=== PATIENT | female | born 1960 | race Caucasian/White ===

== ENCOUNTER → 2016-07-04 | Outpatient (REF) ==
[~2016-07-04] MED LIST: ALEVE 220MG220 MG PO; CALCIUM 600/VIT1 CAP PO; FLEXERIL 1010 MG/TAB PO; IRON325 MG PO; MASON NATURAL1200 MG PO; MIRTAZAPINE7.5 MG PO; MOTRIN 800800 MG/TAB PO; MULTI VITAMINS1 TAB PO; NO HOME MEDICATIONS; NORCO 325 MG-51 TAB PO; VALTREX1 GM PO
[2016-07-04 15:55] LABS: TOTAL IRON BINDING CAPACITY 311 ug/dL (265-497)
[2016-07-04 16:22] LABS: FERRITIN 198 ng/mL (11-264)
== END ==
LOC: ZLAB.WCH 14:48
PROVIDERS: Internal Medicine
DX: Z01.89 Encounter for other specified special examinations (principal)

== ENCOUNTER 2016-07-21 10:30 | Day surgery (SDC) | payer BC ==
[~2016-07-21] VITALS: Ht 170.2 cm; Wt 99.6 kg
[~2016-07-21 10:30] MED LIST changes: -ALEVE 220MG220 MG PO; -CALCIUM 600/VIT1 CAP PO; -IRON325 MG PO; -MASON NATURAL1200 MG PO; -MIRTAZAPINE7.5 MG PO; -MULTI VITAMINS1 TAB PO
[2016-07-21 10:59] VITALS: BP 105/72; PULSE 92; TEMP 98.4
[2016-07-21] MEDS ORDERED: MIRTAZAPINE7.5 MG PO (11:08)
[2016-07-21] MEDS ORDERED: ALEVE 220MG220 MG PO (11:09)
[2016-07-21] MEDS ORDERED: MULTI VITAMINS1 TAB PO (11:10)
[2016-07-21] MEDS ORDERED: MASON NATURAL1200 MG PO (11:11)
[2016-07-21] MEDS ORDERED: CALCIUM 600/VIT1 CAP PO (11:11)
[2016-07-21] MEDS ORDERED: IRON325 MG PO (11:12)
[2016-07-21 12:17] VITALS: BP 125/74; PULSE 88
[2016-07-21 12:30] VITALS: BP 125/71; PULSE 81
[2016-07-21 14:03] VITALS: BP 117/74; PULSE 82
== END 2016-07-21 12:48 | disposition home or self-care (01) ==
LOC: SDCO 10:30
DX: Z12.11 Encounter for screening for malignant neoplasm of colon (principal); K57.30 Diverticulosis of large intestine without perforation or abscess without bleeding
CPT/HCPCS: OP; J2250; J3010; J7030

== ENCOUNTER → 2018-01-24 | Outpatient (REF) ==
[~2018-01-24] MED LIST changes: +ALEVE 220MG220 MG PO; +CALCIUM 600/VIT1 CAP PO; +IRON325 MG PO; +MASON NATURAL1200 MG PO; +MIRTAZAPINE7.5 MG PO; +MULTI VITAMINS1 TAB PO
[2018-01-24 15:05] LABS: THYROID STIMULATING HORMONE 1.7 uIU/mL (0.465-4.680)
== END ==
LOC: ZLAB.WCH 14:16
PROVIDERS: Internal Medicine
DX: Z01.89 Encounter for other specified special examinations (principal)

== ENCOUNTER 2019-12-13 22:33 | Emergency (ER) | payer BC ==
[~2019-12-13] VITALS: Ht 170.2 cm; Wt 80.0 kg
[2019-12-13 22:57] VITALS: BP 105/41; TEMP 98.2
[2019-12-14 00:15] LABS: BASO % 0.1 % (0.0-2.0); EOS % 0.2 % (0-4.0); GRAN # 7.2 (1.4-6.5); GRAN % 68.7 % (42.2-75.2); HEMOGLOBIN 11.3 g/dl (12.5-16.0); LYMPH # 2.3 (1.2-3.4); LYMPH % 22.2 % (20.0-51.0); MEAN CELL VOLUME 88 fl (80.0-100.0); MEAN CORPUSCULAR HEMOGLOBIN 30 pg (27.0-31.0); MEAN CORPUSCULAR HGB CONC 34 g/dl (33.0-37.0); MEAN PLATELET VOLUME 10.4 fl (7.4-10.4); MONO # 0.9 (0.1-0.6); MONO % 8.5 % (1.7-9.3); PLATELET COUNT 268 K/mm3 (130-400); RED BLOOD COUNT 3.76 M/mm3 (4.10-5.30); REDCELL DISTRIBUTION WIDTH-CV 13.3 % (11.5-14.5)
[2019-12-14 00:17] LABS: PROTHROMBIN TIME 11.7 SECONDS (9.7-12.8)
[2019-12-14 00:20] LABS: PARTIAL THROMBOPLASTIN TIME 27.3 SECONDS (26.0-37.0)
[2019-12-14 00:22] LABS: ALBUMIN 3.7 gm/dL (3.5-5.0); BILIRUBIN,TOTAL 0.7 mg/dL (0.0-1.0); CALCIUM 9.6 mg/dL (8.4-10.2); CREATININE, serum 0.47 (0.52-1.25); POTASSIUM 3.6 mmol/L (3.4-5.0)
[2019-12-14 00:43] LABS: pH GASTRIC CONTENTS 4
[2019-12-14 00:45] LABS: GASTROCCULT POSITIVE
[2019-12-14] MEDS ORDERED: PROTONIX40 MG/Pack PEG (03:02)
[2019-12-14 03:10] VITALS: PULSE 80
== END 2019-12-14 03:10 | disposition home or self-care (01) ==
LOC: COL.ER 22:33
PROVIDERS: Emergency Medicine
DX: K94.23 Gastrostomy malfunction (principal); R06.02 Shortness of breath; Z88.6 Allergy status to analgesic agent; Z88.1 Allergy status to other antibiotic agents
CPT/HCPCS: C9113; J1790; J3010; J7030

== ENCOUNTER 2019-12-26 13:19 | Inpatient (IN) | payer BC ==
[~2019-12-26] VITALS: Ht 170.2 cm; Wt 74.6 kg
[~2019-12-26 13:19] MED LIST changes: +PROTONIX40 MG/Pack PEG
[2019-12-26 16:56] LABS: BASO % 0.1 % (0.0-2.0); GRAN # 15.8 (1.4-6.5); GRAN % 84.2 % (42.2-75.2); HEMATOCRIT 37.5 % (37.0-47.0); HEMOGLOBIN 12.6 g/dl (12.5-16.0); LYMPH # 1.8 (1.2-3.4); LYMPH % 9.3 % (20.0-51.0); MEAN CELL VOLUME 91 fl (80.0-100.0); MEAN CORPUSCULAR HEMOGLOBIN 30 pg (27.0-31.0); MEAN CORPUSCULAR HGB CONC 34 g/dl (33.0-37.0); MEAN PLATELET VOLUME 10.2 fl (7.4-10.4); MONO # 1.1 (0.1-0.6); MONO % 5.9 % (1.7-9.3); PLATELET COUNT 299 K/mm3 (130-400); RED BLOOD COUNT 4.14 M/mm3 (4.10-5.30); REDCELL DISTRIBUTION WIDTH-CV 14.2 % (11.5-14.5)
[2019-12-26] MEDS ORDERED: 00186-0370-20 IH (16:56)
[2019-12-26] MEDS ORDERED: NORCO 325 MG-51 TAB PO (16:56)
[2019-12-26] MEDS ORDERED: CENA K20 MEQ/15 PEG (16:57)
[2019-12-26] MEDS ORDERED: REMERON 15M15 MG/TA1 PEG (16:57)
[2019-12-26] MEDS ORDERED: PRELONE15 MG/5 ML PEG (16:57)
[2019-12-26 17:06] LABS: BILIRUBIN,TOTAL 0.7 mg/dL (0.0-1.0); CALCIUM 9.7 mg/dL (8.4-10.2); CREATININE, serum 0.53 (0.52-1.25); TOTAL PROTEIN 7.4 gm/dL (6.4-8.2)
[2019-12-26 17:16] LABS: C-REACTIVE PROTEIN 23.2 mg/dL (0.0-0.9)
[2019-12-26] MEDS ORDERED: RT SPIRIVA18 MCG IH (20:06)
[2019-12-26] MEDS ORDERED: CLARITIN 1010 MG/TAB PEG (20:12)
[2019-12-26] MEDS ORDERED: ANTIVERT 25MG25 MG PEG (20:14)
[2019-12-26] MEDS ORDERED: MOTRIN CHI100 MG/5 M PEG (20:16)
[2019-12-26] MEDS ORDERED: PRIL40 PEG (20:27)
[2019-12-26] MEDS ORDERED: NATURAL IRON65 MG PEG (20:33)
--- NOTE | 2019-12-26 21:41 | NUR ---
Pt arrived to the floor via wheelchair. Pt was able to ambulate to the bed from the wheelchair. Pt was able to answer all questions about he medications. Dr. Gomez has came in and talked with the pt. She currently has a complaint of a headache. Pt has been informed that I can get her something for her headache. Pt has her call light within reach and her bed is in lowest position.
[2019-12-26] MEDS ORDERED: NICODERM C14 MG/PATC TD (21:44)
[2019-12-26 23:09] VITALS: BP 136/78; PULSE 98; TEMP 98.3
[2019-12-27] VITALS (7 sets, daily range): BP systolic 99–131; BP diastolic 45–64; PULSE 60–88; TEMP 98.3–99.8
--- NOTE | 2019-12-27 07:05 | NUR ---
Pt did call out throughout the night and requested pain medication.She was given pain medication each time. She is currently resting in bed. Reported to Lionel Vences. Pt has her call light within reach.
[2019-12-27 07:39] LABS: BASO % 0.1 % (0.0-2.0); EOS % 0.4 % (0-4.0); GRAN # 8.2 (1.4-6.5); GRAN % 77.7 % (42.2-75.2); LYMPH # 1.4 (1.2-3.4); LYMPH % 13.2 % (20.0-51.0); MEAN CELL VOLUME 91 fl (80.0-100.0); MEAN CORPUSCULAR HGB CONC 33 g/dl (33.0-37.0); MEAN PLATELET VOLUME 10.7 fl (7.4-10.4); MONO # 0.9 (0.1-0.6); MONO % 8.2 % (1.7-9.3); PLATELET COUNT 230 K/mm3 (130-400); RED BLOOD COUNT 3.35 M/mm3 (4.10-5.30); REDCELL DISTRIBUTION WIDTH-CV 14.1 % (11.5-14.5)
[2019-12-27 07:45] LABS: HEMATOCRIT 30.5 % (37.0-47.0); MEAN CORPUSCULAR HEMOGLOBIN 30 pg (27.0-31.0)
[2019-12-27 07:48] LABS: HEMOGLOBIN 10.1 g/dl (12.5-16.0)
[2019-12-27 07:56] LABS: BILIRUBIN,TOTAL 0.9 mg/dL (0.0-1.0); CALCIUM 8.8 mg/dL (8.4-10.2); CREATININE, serum 0.49 (0.52-1.25); POTASSIUM 3.2 mmol/L (3.4-5.0)
[2019-12-27 08:11] LABS: C-REACTIVE PROTEIN 21.6 mg/dL (0.0-0.9)
[2019-12-27 12:55] LABS: PHOSPHOROUS 4.2 mg/dL (2.5-4.5)
--- NOTE | 2019-12-27 19:05 | NUR ---
Received report from Vangie. Seen patient awake, sitting in bed. She is laert and oriented. She has ongoing Procalamine at 83ml/hr and Lipids at 21ml/hr on her right AC. With D5NS + 20 art KCL at 75ml/hr on her right forearm. Dressing on her left abdomen is clean, dry and intact. Call light within reach.
--- NOTE | 2019-12-27 19:08 | NUR ---
Patient resting at bedside at this time. Patient is alert and oriented, answers questions appropriately. Suction at bedside for patient use to manage secretions. IV procalamine and Lipids to RAC per order, IVF and antibiotics to RFA. Dressing to PEG tube site changed after leaking. Patient denies further needs at this time, call light within reach.
--- NOTE | 2019-12-28 00:50 | NUR ---
Patient complains of pain on her shoulders, neck and mucsle spasm. She requested for Dilaudid and Diazepam.
[2019-12-28 03:31] VITALS: BP 122/63; PULSE 63; TEMP 98.3
[2019-12-28 06:45] LABS: BASO % 0.1 % (0.0-2.0); EOS % 0.4 % (0-4.0); GRAN # 7.6 (1.4-6.5); HEMOGLOBIN 10.1 g/dl (12.5-16.0); LYMPH # 1.5 (1.2-3.4); LYMPH % 14.5 % (20.0-51.0); MEAN CELL VOLUME 89 fl (80.0-100.0); MEAN CORPUSCULAR HEMOGLOBIN 30 pg (27.0-31.0); MEAN CORPUSCULAR HGB CONC 34 g/dl (33.0-37.0); MEAN PLATELET VOLUME 10.6 fl (7.4-10.4); MONO # 0.9 (0.1-0.6); MONO % 8.6 % (1.7-9.3); PLATELET COUNT 203 K/mm3 (130-400); RED BLOOD COUNT 3.35 M/mm3 (4.10-5.30); REDCELL DISTRIBUTION WIDTH-CV 13.4 % (11.5-14.5)
[2019-12-28 06:55] LABS: ALBUMIN 3.1 gm/dL (3.5-5.0); BILIRUBIN,TOTAL 0.8 mg/dL (0.0-1.0); CALCIUM 8.4 mg/dL (8.4-10.2); CREATININE, serum 0.39 (0.52-1.25); HEMATOCRIT 29.8 % (37.0-47.0); POTASSIUM 3.4 mmol/L (3.4-5.0)
[2019-12-28 07:50] VITALS: BP 113/52; PULSE 67; TEMP 98.5
--- NOTE | 2019-12-28 09:56 | NUR ---
Patient resting in bed at this time, rouses easily and is alert and oriented while awake. Patient reports that she had some trouble sleeping last night due to swelling in the back of her throat that she attributes to her tumor. Patient reports she feels relief from swelling after morning dose. IVF continue to RFA per order. Patient requested PRN pain medication, dose given per order. Denies further needs at this time, call light within reach.
[2019-12-28 12:22] VITALS: BP 112/56; PULSE 72; TEMP 98.2
[2019-12-28 16:04] VITALS: BP 118/62; PULSE 64; TEMP 98.5
--- NOTE | 2019-12-28 18:48 | NUR ---
Patient resting at bedside finishing dinner. Patient remains alert and oriented, suction at bedside for patient comfort. IV procalamine and lipids infusing per order. IVF and antibiotics infusing per order. Patient denies pain or needs at this time, call light within reach.
[2019-12-28 19:42] VITALS: BP 126/51; PULSE 66; TEMP 98.6
--- NOTE | 2019-12-28 21:00 | NUR ---
Patient awake and alert and oriented. Reports a headach. PRN dilauded administered. Will continue to monitor.
[2019-12-28 23:41] VITALS: BP 149/89; PULSE 68; TEMP 98.3
--- NOTE | 2019-12-29 03:00 | NUR ---
Patient awake and utilizing her oral suction as needed for oral secretions. Call light left within reach. Will continue to monitor.
[2019-12-29 03:40] VITALS: BP 134/64; PULSE 52; TEMP 98.6
[2019-12-29 06:57] LABS: BASO % 0.1 % (0.0-2.0); EOS % 0.2 % (0-4.0); GRAN # 7.7 (1.4-6.5); GRAN % 76.5 % (42.2-75.2); HEMATOCRIT 31.3 % (37.0-47.0); HEMOGLOBIN 10.6 g/dl (12.5-16.0); LYMPH # 1.5 (1.2-3.4); MEAN CELL VOLUME 87 fl (80.0-100.0); MEAN CORPUSCULAR HEMOGLOBIN 30 pg (27.0-31.0); MEAN CORPUSCULAR HGB CONC 34 g/dl (33.0-37.0); MEAN PLATELET VOLUME 10.3 fl (7.4-10.4); MONO # 0.8 (0.1-0.6); MONO % 7.6 % (1.7-9.3); PLATELET COUNT 232 K/mm3 (130-400); RED BLOOD COUNT 3.58 M/mm3 (4.10-5.30); REDCELL DISTRIBUTION WIDTH-CV 13.1 % (11.5-14.5)
[2019-12-29 07:12] LABS: CALCIUM 8.8 mg/dL (8.4-10.2); CREATININE, serum 0.35 (0.52-1.25); MAGNESIUM 2.2 mg/dL (1.6-2.3); POTASSIUM 3.6 mmol/L (3.4-5.0)
[2019-12-29 07:46] VITALS: BP 137/81; PULSE 85; TEMP 98.3
[2019-12-29 11:35] LABS: ALBUMIN 3.4 gm/dL (3.5-5.0); BILIRUBIN,TOTAL 0.8 mg/dL (0.0-1.0); CALCIUM 8.9 mg/dL (8.4-10.2); CREATININE, serum 0.36 (0.52-1.25); PHOSPHOROUS 2.9 mg/dL (2.5-4.5); POTASSIUM 3.5 mmol/L (3.4-5.0); TOTAL PROTEIN 6.6 gm/dL (6.4-8.2)
[2019-12-29 11:42] LABS: PRE ALBUMIN 13.6 mg/dL (17.6-36.0)
[2019-12-29 11:58] VITALS: BP 146/122; PULSE 63; TEMP 98.3
[2019-12-29 16:27] VITALS: BP 138/72; PULSE 64; TEMP 98.2
--- NOTE | 2019-12-29 16:39 | NUR ---
Radiology Supervisor met with patient to discuss discharge planning. Patient lives in [place] with her , Darrius (ph#[phone]) [address] sees Dr. Villagran for primary care. Patient obtains medications from [facility] and PEG tube supplies from [facility]. Patient has a suction machine at home as well as a walker and cane. Patient reports she is normally independent with ADLS. Patient does not have Advance Directives at this time. LISA attended clinical rounds with the team and collaborated with Matt Rapp as patient will discharge on home TPN. Patient to have PICC placed today and will start TPN. Tamela advised patient has [facility]. LISA contacted Antionette at [facility] and left a message. LISA contacted COSMO who advised TPN could be ordered from the [facility] pharmacy in [place]. LISA called patient's who advised he was on his way to the hospital now. LISA will continue to follow.
--- NOTE | 2019-12-29 18:46 | NUR ---
Patient resting at bedside eating dinner at this time. Patient remains alert and oriented. Suction at bedside for patient comfort. PICC line placed in LUE this morning, TPN initated this evening, patient currently tolerating well. Pain medication administered per patient request. Dressing to PEG site changed, moderate amount of drainage on dressing, area of induration and redness appears smaller today. Patient denies further needs at this time, call light within reach.
[2019-12-29 20:12] VITALS: BP 150/68; PULSE 65; TEMP 98.9
--- NOTE | 2019-12-29 20:30 | NUR ---
Pt. laying in bed at this time. Pt. is A&OX3, assessment complete. INT to rt. ac. PICC to Lt. upper arm patent, TPN infusing per orders. Pt. reports pain to abd. at a 6 gave pain meds per orders. Dressing to abd. cdi. Pt. denies further needs, call light within reach.
[2019-12-30 00:12] VITALS: BP 168/76; PULSE 78; TEMP 97.8
[2019-12-30 03:17] VITALS: BP 156/75; PULSE 72; TEMP 99
--- NOTE | 2019-12-30 05:58 | NUR ---
Pt. slept off and on through the night. Pt. remains A&OX3. Dressing to abd. CDI. Pt. denies needs, call light within reach.
[2019-12-30 06:44] LABS: BASO % 0.2 % (0.0-2.0); EOS % 0.1 % (0-4.0); GRAN # 8.3 (1.4-6.5); GRAN % 76.3 % (42.2-75.2); HEMOGLOBIN 11.1 g/dl (12.5-16.0); LYMPH # 1.5 (1.2-3.4); LYMPH % 13.3 % (20.0-51.0); MEAN CELL VOLUME 89 fl (80.0-100.0); MEAN CORPUSCULAR HEMOGLOBIN 30 pg (27.0-31.0); MEAN CORPUSCULAR HGB CONC 34 g/dl (33.0-37.0); MEAN PLATELET VOLUME 10.1 fl (7.4-10.4); PLATELET COUNT 261 K/mm3 (130-400); RED BLOOD COUNT 3.69 M/mm3 (4.10-5.30); REDCELL DISTRIBUTION WIDTH-CV 13.2 % (11.5-14.5)
[2019-12-30 06:45] LABS: HEMATOCRIT 32.8 % (37.0-47.0)
[2019-12-30 06:51] LABS: ALBUMIN 3.4 gm/dL (3.5-5.0); BILIRUBIN,TOTAL 0.5 mg/dL (0.0-1.0); CALCIUM 8.5 mg/dL (8.4-10.2); CREATININE, serum 0.36 (0.52-1.25); MAGNESIUM 2.4 mg/dL (1.6-2.3); PHOSPHOROUS 3.3 mg/dL (2.5-4.5); POTASSIUM 3.7 mmol/L (3.4-5.0); TOTAL PROTEIN 6.6 gm/dL (6.4-8.2)
[2019-12-30 07:34] VITALS: BP 152/70; PULSE 62; TEMP 98.2
--- NOTE | 2019-12-30 08:53 | NUR ---
Patient to MRI at 0820
[2019-12-30] MEDS ORDERED: REMERON SOLTAB15 MG PO (09:36)
[2019-12-30] MEDS ORDERED: BONINE25 MG PO (09:38)
[2019-12-30] MEDS ORDERED: FERROUS SU300 MG/5 M PO (09:42)
[2019-12-30] MEDS ORDERED: AUGMENTIN 400 M1 CTB PO (09:45)
[2019-12-30] MEDS ORDERED: NORCOELIX PO (09:46)
[2019-12-30 11:24] VITALS: BP 126/58; PULSE 65; TEMP 98.6
--- NOTE | 2019-12-30 13:25 | NUR ---
Dr Armas here to see patient.
--- NOTE | 2019-12-30 14:30 | NUR ---
Location Man faxed TPN orders, progress notes, and nutrition notes to Patricia at [facility] in [place]. Patricia advised TPN will ship out today and arrive at patient's home tomorrow at 1800. Patricia states patient has met her deductible and TPN will likely be approved. LISA provided this update to Tamela, Dietitian and Hospitalist and plan will be for discharge tomorrow. LISA faxed referral to [facility] and spoke with SHELL Adan who advised they accept referral. LISA advised that plan is for discharge tomorrow. LISA contacted Patricia to notify her that [facility] will be the agency providing home health. LISA met with patient and patient's , Darrius to review discharge plan. LISA will continue to follow.
[2019-12-30 16:07] VITALS: BP 141/67; PULSE 60; TEMP 98.2
[2019-12-30 20:06] VITALS: BP 145/64; PULSE 92; TEMP 97.4
--- NOTE | 2019-12-30 21:00 | NUR ---
Pt. sitting up in bed at this time. Pt. is A&OX3, assessment complete. PICC to lt. upper arm patent, TPN infusing per orders. Dressing to abd. CDI. Pt. reports pain at a 6 on pain scale, gave pain meds per orders. Pt. denies further needs, call light within reach.
[2019-12-31] VITALS (7 sets, daily range): BP systolic 134–148; BP diastolic 49–62; PULSE 60–70; TEMP 97.5–99.1
--- NOTE | 2019-12-31 06:53 | NUR ---
Pt.'s bed zeroed this am Weight is accurate
[2019-12-31 07:12] LABS: BASO % 0.2 % (0.0-2.0); EOS % 0.2 % (0-4.0); GRAN # 10.3 (1.4-6.5); GRAN % 77.5 % (42.2-75.2); HEMOGLOBIN 11.5 g/dl (12.5-16.0); LYMPH # 1.7 (1.2-3.4); LYMPH % 12.7 % (20.0-51.0); MEAN CELL VOLUME 88 fl (80.0-100.0); MEAN CORPUSCULAR HEMOGLOBIN 30 pg (27.0-31.0); MEAN CORPUSCULAR HGB CONC 34 g/dl (33.0-37.0); MEAN PLATELET VOLUME 9.9 fl (7.4-10.4); MONO # 1.1 (0.1-0.6); MONO % 8.5 % (1.7-9.3); PLATELET COUNT 271 K/mm3 (130-400); RED BLOOD COUNT 3.82 M/mm3 (4.10-5.30); REDCELL DISTRIBUTION WIDTH-CV 13.2 % (11.5-14.5)
[2019-12-31 07:13] LABS: HEMATOCRIT 33.7 % (37.0-47.0)
[2019-12-31 07:21] LABS: CALCIUM 8.8 mg/dL (8.4-10.2); CREATININE, serum 0.33 (0.52-1.25); MAGNESIUM 2.3 mg/dL (1.6-2.3); PHOSPHOROUS 3.1 mg/dL (2.5-4.5); POTASSIUM 3.5 mmol/L (3.4-5.0)
[2019-12-31 07:27] LABS: PRE ALBUMIN 14.3 mg/dL (17.6-36.0)
--- NOTE | 2019-12-31 07:55 | NUR ---
Shift assessment completed. Pt has left antecubital PICC line with no redness, drainage, or edema. Pt had suction at bedside to clear mouth of secretions from cough. Abdominal dressing was CDI. Pt was complaining of neck pain.
--- NOTE | 2019-12-31 10:00 | NUR ---
Patient alert and oriented, answers questions appropriately. See assessment. LUQ has increased redness and warmth. Previous PEG tube site with no drainage noted. Small open area noted to left of previous PEG tube site, draining large amounts of purulent drainage. Mechelle Gonzales and Chanda notified of drainage.
--- NOTE | 2019-12-31 10:05 | NUR ---
Dr Armas here to see patient.
--- NOTE | 2019-12-31 10:30 | NUR ---
Dr Armas at bedside to drain abscess to LUQ. [place] drain in place, covered with 4x4 and gauze.
--- NOTE | 2019-12-31 12:36 | NUR ---
Ham Trimmer attended clinical rounds with the team and patient will not discharge today. LISA contacted Patricia at [facility] to provide update. Patricia confirmed TPN should still arrive at patient's home tonight around 1800. Patricia advised that the TPN will be good for 14 days but needs to be put in the fridge upon arrival. LISA contacted patient's , Darrius who states he will be home tonight to sign for the TPN. LISA contacted Antionette at [facility] to provide update. LISA will continue to follow.
--- NOTE | 2019-12-31 20:30 | NUR ---
Pt laying in bed upon entry requesting scheduled meds and prn pain med. Dressing to abdomen changed, with purulent drainage, angelica in place. Yaunker at bedside. PRN pain meds and scheduled meds administered. TPN infusing to SARMAD PICC, intact, dressing CDI. Needs met. Call light within reach.
[2020-01-01 04:38] VITALS: BP 139/64; PULSE 63; TEMP 98.2
--- NOTE | 2020-01-01 07:07 | NUR ---
report given to SHELL Dumont.
[2020-01-01 07:31] VITALS: BP 137/57; PULSE 68; TEMP 98.5
[2020-01-01 07:38] LABS: CALCIUM 8.9 mg/dL (8.4-10.2); CREATININE, serum 0.36 (0.52-1.25); MAGNESIUM 2.2 mg/dL (1.6-2.3); PHOSPHOROUS 2.7 mg/dL (2.5-4.5); POTASSIUM 3.2 mmol/L (3.4-5.0)
--- NOTE | 2020-01-01 10:10 | NUR ---
PATIENT SHIFT ASSESSMENT COMPLETED AT THIS TIME. ABDOMINAL THOMAS DRAIN DRESSING REMOVED. SMALL AMOUNTS OF PURULENT DRAINAGE PRESENT ON GAUZE WHEN REMOVED. THOMAS DRAIN SITE RE-DRESSED WITH MANUAL ARTS THERAPY TEACHER AND COVERED WITH 4X4 GAUZE AND OCCLUSIVE TAPE. PICC LINE TO LUE. CALL LIGHT IN REACH. PATIENT DENIES ANY OTHER NEEDS AT THIS TIME.
[2020-01-01 12:00] VITALS: BP 131/61; PULSE 77; TEMP 98.1
--- NOTE | 2020-01-01 15:18 | NUR ---
Chair Mechanic attended clinical rounds with the team and patient to discharge home today with [facility] for PT/OT/Fpc and home TPN from [facility]. LISA contacted Antionette at [facility] then faxed updates and discharge orders. Antionette advised she will get in contact with patient once she is home and they will get patient's TPN started. LISA collaborated with Deena Rappitian then met with patient and her to review discharge plan. Patient's , Darrius confirmed that the TPN arrived yesterday with no issue. Patient and denied any questions or concerns at this time.
--- NOTE | 2020-01-01 17:14 | NUR ---
DISCHARGE INSTRUCTIONS REVIEWED WITH PATIENT AND . PATIENT PERSONAL BELONGINGS GATHERED. PATIENT TAKEN TO PERSONAL VEHICLE VIA WHEELCHAIR BY SURGICAL STAFF. PATIENT DISCHARGED.
== END 2020-01-01 17:14 | disposition home health service (06) | DRG 356 ==
LOC: COL.ER 13:19 → SURG 17:44 → MEDICAL 01-01 14:03 → SURG 01-01 17:14
PROVIDERS: Emergency Medicine; Hospitalist; Physician Assistant; Surgery; ADMIT Surgery
PROC: 02HV33Z Insertion of Infusion Device into Superior Vena Cava, Percutaneous Approach (ICD-10-PCS; 2019-12-29)
PROC: 0W9F00Z Drainage of Abdominal Wall with Drainage Device, Open Approach (ICD-10-PCS; principal; 2019-12-31)
DX: K94.22 Gastrostomy infection (principal); A41.9 Sepsis, unspecified organism; L03.311 Cellulitis of abdominal wall; E87.3 Alkalosis; L02.211 Cutaneous abscess of abdominal wall; K94.23 Gastrostomy malfunction; J44.9 Chronic obstructive pulmonary disease, unspecified; D49.6 Neoplasm of unspecified behavior of brain; E87.6 Hypokalemia; D64.9 Anemia, unspecified; E27.9 Disorder of adrenal gland, unspecified; Z87.891 Personal history of nicotine dependence; Z88.1 Allergy status to other antibiotic agents; Z88.6 Allergy status to analgesic agent; Y83.8 Other surgical procedures as the cause of abnormal reaction of the patient, or of later complication, without mention of misadventure at the time of the procedure
CPT/HCPCS: 99222; 99231-AI; 99232-AI; A9585; C1751; J0610; J1100; J1170; J1650; J2405; J2543; J3010; J3360; J3475; J3480; J7030; J7120; J7131; J7510; Q9967

== ENCOUNTER 2020-01-03 11:14 | Emergency (ER) | payer BC ==
[~2020-01-03] VITALS: Ht 170.2 cm; Wt 78.6 kg
[~2020-01-03 11:14] MED LIST changes: +00186-0370-20 IH; +ANTIVERT 25MG25 MG PEG; +AUGMENTIN 400 M1 CTB PO; +BONINE25 MG PO; +CENA K20 MEQ/15 PEG; +CLARITIN 1010 MG/TAB PEG; +FERROUS SU300 MG/5 M PO; +MOTRIN CHI100 MG/5 M PEG; +NATURAL IRON65 MG PEG; +NICODERM C14 MG/PATC TD; +NORCOELIX PO; +PRELONE15 MG/5 ML PEG; +PRIL40 PEG; +REMERON 15M15 MG/TA1 PEG; +REMERON SOLTAB15 MG PO; +RT SPIRIVA18 MCG IH
[2020-01-03 11:27] VITALS: TEMP 97.4
[2020-01-03 13:50] VITALS: BP 128/72; PULSE 88
== END 2020-01-03 13:50 | disposition home or self-care (01) ==
LOC: COL.ER 11:14
DX: L02.211 Cutaneous abscess of abdominal wall (principal); J44.9 Chronic obstructive pulmonary disease, unspecified; Z88.6 Allergy status to analgesic agent; Z88.1 Allergy status to other antibiotic agents; Z79.51 Long term (current) use of inhaled steroids; Z79.52 Long term (current) use of systemic steroids

== ENCOUNTER 2020-01-10 20:47 | Emergency (ER) | payer BC ==
[2020-01-10 20:48] VITALS: TEMP 98.4
[2020-01-10 21:13] LABS: BASO % 0.1 % (0.0-2.0); GRAN # 13.8 (1.4-6.5); GRAN % 88.6 % (42.2-75.2); HEMOGLOBIN 11.6 g/dl (12.5-16.0); LYMPH # 0.8 (1.2-3.4); LYMPH % 4.8 % (20.0-51.0); MEAN CELL VOLUME 88 fl (80.0-100.0); MEAN CORPUSCULAR HEMOGLOBIN 30 pg (27.0-31.0); MEAN CORPUSCULAR HGB CONC 34 g/dl (33.0-37.0); MEAN PLATELET VOLUME 10.2 fl (7.4-10.4); MONO # 0.9 (0.1-0.6); MONO % 5.9 % (1.7-9.3); PLATELET COUNT 241 K/mm3 (130-400); RED BLOOD COUNT 3.88 M/mm3 (4.10-5.30); REDCELL DISTRIBUTION WIDTH-CV 13.7 % (11.5-14.5)
[2020-01-10 21:26] LABS: HEMATOCRIT 34.3 % (37.0-47.0)
[2020-01-10 21:29] LABS: INR 1.2 (0.8-3.0); PROTHROMBIN TIME 12.9 SECONDS (9.7-12.8)
[2020-01-10 21:41] LABS: ALBUMIN 3.4 gm/dL (3.5-5.0); BILIRUBIN,TOTAL 0.8 mg/dL (0.0-1.0); CALCIUM 8.8 mg/dL (8.4-10.2); CREATININE, serum 0.38 (0.52-1.25); TOTAL PROTEIN 6.3 gm/dL (6.4-8.2)
[2020-01-10 21:54] LABS: POTASSIUM 2.4 mmol/L (3.4-5.0)
[2020-01-11] VITALS: BP 133/79; PULSE 97
== END 2020-01-11 | disposition short-term general hospital (02) ==
LOC: COL.ER 20:47
PROVIDERS: Emergency Medicine
DX: S02.113A Unspecified occipital condyle fracture, initial encounter for closed fracture (principal); S12.040A Displaced lateral mass fracture of first cervical vertebra, initial encounter for closed fracture; S09.92XA Unspecified injury of nose, initial encounter; S12.9XXA Fracture of neck, unspecified, initial encounter; H74.8X3 Other specified disorders of middle ear and mastoid, bilateral; J44.9 Chronic obstructive pulmonary disease, unspecified; Z88.1 Allergy status to other antibiotic agents; Z88.6 Allergy status to analgesic agent; Z91.040 Latex allergy status; W22.03XA Walked into furniture, initial encounter; Y92.009 Unspecified place in unspecified non-institutional (private) residence as the place of occurrence of the external cause
CPT/HCPCS: J3480; J7030; L0174

== ENCOUNTER 2020-01-23 14:09 | Inpatient (IN) | payer BC, OTHER ==
[~2020-01-23] VITALS: Ht 170.2 cm; Wt 75.9 kg
[2020-01-23] VITALS (130 sets, daily range): BP systolic 139; BP diastolic 80; PULSE 98; TEMP 98.2–98.5; O2SAT 87–98
[2020-01-23 14:42] LABS: HEMOGLOBIN 10.4 g/dl (12.5-16.0); MEAN CELL VOLUME 91 fl (80.0-100.0); MEAN CORPUSCULAR HEMOGLOBIN 30 pg (27.0-31.0); MEAN CORPUSCULAR HGB CONC 33 g/dl (33.0-37.0); MEAN PLATELET VOLUME 10.3 fl (7.4-10.4); PLATELET COUNT 294 K/mm3 (130-400); RED BLOOD COUNT 3.47 M/mm3 (4.10-5.30); REDCELL DISTRIBUTION WIDTH-CV 14.6 % (11.5-14.5)
[2020-01-23 14:44] LABS: HEMATOCRIT 31.6 % (37.0-47.0)
[2020-01-23 14:51] LABS: ALBUMIN 3.3 gm/dL (3.5-5.0); BILIRUBIN,TOTAL 0.8 mg/dL (0.0-1.0); CALCIUM 8.6 mg/dL (8.4-10.2); CREATININE, serum 0.58 (0.52-1.25); POTASSIUM 3.7 mmol/L (3.4-5.0); TOTAL PROTEIN 6.5 gm/dL (6.4-8.2)
[2020-01-23 14:59] LABS: ANISOCYTOSIS 1+; BAND 3 % (0-10); LYMPHOCYTE 2 % (20.0-51.0); NEUTROPHILS 94 % (42.0-75.2); PLATELET ESTIMATE NORMAL (NORMAL)
[2020-01-23 15:34] LABS: COLLECTION METHOD CATHETER
[2020-01-23 15:47] LABS: MUCOUS Present /lpf; PH 7 (5-8); SQUAMOUS EPITHELIAL 0-2 /hpf; URINE APPEARANCE Clear; URINE BACTERIA None Seen /hpf; URINE BILIRUBIN Negative (NEGATIVE); URINE BLOOD Negative (NEGATIVE); URINE COLOR Yellow; URINE GLUCOSE Negative (NEGATIVE); URINE KETONE Negative (NEGATIVE); URINE LEUKOCYTE ESTERASE Negative (NEGATIVE); URINE NITRATE Negative (NEGATIVE); URINE PROTEIN(semi-quant) Negative (NEGATIVE); URINE RBC 0-2 /hpf; URINE UROBILINOGEN >=4.0 mg/dL (NEGATIVE)
[2020-01-23] MEDS ORDERED: SALONPAS1 EACH TP (16:12)
[2020-01-23] MEDS ORDERED: CENA K20 MEQ/15 PO (16:13)
[2020-01-23] MEDS ORDERED: PRELONE15 MG/5 ML PO (16:13)
[2020-01-23 16:59] LABS: TROPONIN-I < 0.012 ng/mL (0.000-0.035)
--- NOTE | 2020-01-23 17:02 | NUR ---
Finishing Range Supervisor was consulted to the ED as patient arrived via EMS covered in feces and has not been doing well at home. LISA contacted Antionette at [facility] as patient was recently admitted to this hospital and was discharged home on TPN and was set up with [facility]. Antionette advised that patient has not been doing well at home and has been unable to ambulate without falling. Antionette reports patient was recently at [facility] and they tried to place patient at [facility]. Unfortunately, patient's [employer] [facility] coverage does not have SNF benefits. [facility] offered patient a discounted rate to private pay at [facility] since she used to work for [facility] but patient could not afford even discounted rate. LISA contacted Tsering at [facility] who confirmed this and advised the rate they offered was $160 per day. Tsering advised that they would be willing to consider taking patient if she could private pay. Tsering advised that the SW at [facility] talked with patient and her about Medicaid, but they did not want to do a division of assets. LISA met with patient's in the parking lot and Darrius reports he cannot care for patient at home. Darrius states patient has not been able to walk and has been incontinent. Darrius did not recall anyone talking to him about Medicaid but was willing to discuss applying with Financial Counseling. Darrius reports he is open to placement for patient, but they cannot afford private pay. LISA consulted Dacia, Financial Counseling but due to the time of day, an application for Medicaid cannot be submitted. LISA contacted Michelle, IPR Director who advised she recently screened patient when patient was at [facility] but at that time, patient was deemed too functional for admission to IPR. Michelle reports she is willing to rescreen patient, but with patient having BCBS, she could not admit over the weekend as BCBS cannot be contacted over the weekend. LISA also faxed a referral to [facility] in [place] and left a message for Princess, Smoking Tobacco Cutter Operator. LISA provided update to RNKatharina who advised patient will be admitted. Katharina also advised that patient's is aware that patient will be admitted. LISA made report to APS (intake #[id number])
[2020-01-23] MEDS ORDERED: BACTRIM DS 8001 TAB PO (21:17)
[2020-01-24] VITALS (550 sets, daily range): BP systolic 114–147; BP diastolic 74–95; PULSE 80–103; TEMP 96.7–98.5; O2SAT 87–100
[2020-01-24 04:39] LABS: EOS % 0.1 % (0-4.0); GRAN # 4.8 (1.4-6.5); GRAN % 70.5 % (42.2-75.2); LYMPH # 1.4 (1.2-3.4); LYMPH % 20.5 % (20.0-51.0); MEAN CELL VOLUME 93 fl (80.0-100.0); MEAN CORPUSCULAR HGB CONC 32 g/dl (33.0-37.0); MEAN PLATELET VOLUME 10.2 fl (7.4-10.4); MONO # 0.6 (0.1-0.6); MONO % 8.6 % (1.7-9.3); PLATELET COUNT 236 K/mm3 (130-400); REDCELL DISTRIBUTION WIDTH-CV 14.5 % (11.5-14.5)
[2020-01-24 04:40] LABS: HEMATOCRIT 27.1 % (37.0-47.0); HEMOGLOBIN 8.7 g/dl (12.5-16.0); MEAN CORPUSCULAR HEMOGLOBIN 30 pg (27.0-31.0)
[2020-01-24 04:43] LABS: INR 1.2 (0.8-3.0); PROTHROMBIN TIME 13.9 SECONDS (9.7-12.8)
[2020-01-24 04:50] LABS: CALCIUM 7.2 mg/dL (8.4-10.2); CREATININE, serum 0.46 (0.52-1.25); MAGNESIUM 1.7 mg/dL (1.6-2.3); PHOSPHOROUS 3.3 mg/dL (2.5-4.5)
[2020-01-24 04:55] LABS: POTASSIUM 2.7 mmol/L (3.4-5.0)
--- NOTE | 2020-01-24 05:17 | NUR ---
Pt with K 2.7, Mg 1.7. Jacy called, new orders to replace per potassium prtocol and give MG 2G. Spoke with Dr. Verdin.
--- NOTE | 2020-01-24 07:30 | NUR ---
Pt resting on right side in bed with NC in mouth. Suction at bedside for pt to use at will. Dressing intact around PEG tube site. SCD's not on at this time. Pt able to answer questions appropriately although is difficult to understand at times.
--- NOTE | 2020-01-24 07:35 | NUR ---
Bedside report received from Anne GOFF. IV pumps assessed as well as skin abnormality.
--- NOTE | 2020-01-24 15:00 | NUR ---
Per dietitians verbal orders, once tube feeds are started the NS rate needs to be decreased from 75ml to 50ml/hr.
--- NOTE | 2020-01-24 16:30 | NUR ---
First feeding completed. Decreased NS from 75ml to 50ml/hr.
--- NOTE | 2020-01-24 17:54 | NUR ---
New bed assignment received (353). Report provided to Lucero GOFF on medical floor. Will get pt situated and will call prior to bringing pt up.
--- NOTE | 2020-01-24 20:00 | NUR ---
Pt assisted via ICU bed to room 353. Spouse notified via semiconductor lab technician in ICU. Charge nurse on medical Barb notified of pt arrival and IV fluids running.
--- NOTE | 2020-01-24 21:00 | NUR ---
Pt came from ICU, settled in bed 353. Transfer procedure completed, meds provided as per MAR, tolerated well. Pt has diminished heart and lung sound. Pt denies any N/V/D/ tingling, numbness. Pt complained of pain 8/10 over her neck area, PRN pain meds provided. Peg tube, IV, and folley catheter is CD&I. No further needs at this time, will keep monitoring.
[2020-01-25 00:03] VITALS: BP 140/70; PULSE 83; TEMP 97.6
[2020-01-25 04:54] VITALS: BP 121/83; PULSE 118; TEMP 98.3
--- NOTE | 2020-01-25 06:25 | NUR ---
Pt slept on and off through out the night. PRN pain meds provided on pt request. Morning meds provided as per MAY. No further needs at this time.
--- NOTE | 2020-01-25 06:45 | NUR ---
Report received from SHELL Wynn. PT in bed resting, requesting feeding, found purple syringes in middle storage room outside of hospitalist office. Resting in bed, PRN pain meds will be given and feeding.
[2020-01-25 07:17] LABS: BASO % 0.1 % (0.0-2.0); EOS % 0.1 % (0-4.0); GRAN # 5.9 (1.4-6.5); GRAN % 75.6 % (42.2-75.2); HEMOGLOBIN 10.1 g/dl (12.5-16.0); LYMPH # 1.3 (1.2-3.4); MEAN CELL VOLUME 91 fl (80.0-100.0); MEAN CORPUSCULAR HEMOGLOBIN 30 pg (27.0-31.0); MEAN CORPUSCULAR HGB CONC 33 g/dl (33.0-37.0); MEAN PLATELET VOLUME 10.1 fl (7.4-10.4); MONO # 0.5 (0.1-0.6); MONO % 6.8 % (1.7-9.3); PLATELET COUNT 284 K/mm3 (130-400); RED BLOOD COUNT 3.37 M/mm3 (4.10-5.30)
[2020-01-25 07:23] LABS: HEMATOCRIT 30.8 % (37.0-47.0)
[2020-01-25 07:31] LABS: ALBUMIN 3.2 gm/dL (3.5-5.0); CALCIUM 8.6 mg/dL (8.4-10.2); CREATININE, serum 0.46 (0.52-1.25); MAGNESIUM 1.9 mg/dL (1.6-2.3); TOTAL PROTEIN 6.3 gm/dL (6.4-8.2)
[2020-01-25 07:38] LABS: PRE ALBUMIN 19.3 mg/dL (17.6-36.0)
[2020-01-25 07:39] LABS: POTASSIUM 2.9 mmol/L (3.4-5.0)
[2020-01-25 08:19] VITALS: BP 121/63; PULSE 99; TEMP 98.6
--- NOTE | 2020-01-25 09:00 | NUR ---
Assessment charted. Pt in bed resting, tube feeding given and will start continuous feeding shortly. Pt has pain at 8/10 to abd, prn pain meds given. REsting in side, refusing O2, suction per request at bedside, new canister given. NO residual on PEG tube. Denies needs, will continue to monitor.
[2020-01-25 11:38] VITALS: BP 143/85; PULSE 97; TEMP 97
--- NOTE | 2020-01-25 13:18 | NUR ---
PT tolerating tube feeding well at continuous rate, increased to 60 ml/hr per orders and instructed onkeeping HOB at 30 degrees. at bedside.
[2020-01-25] MEDS ORDERED: FENTANYL 12MCG TD (13:34)
[2020-01-25 15:41] VITALS: BP 117/59; PULSE 100; TEMP 98.1
--- NOTE | 2020-01-25 18:19 | NUR ---
Pt up to commode off and on today, resting in bed with HOB elelvated at 30 degrees. Tube feedings continuing at 60ml/hr, pt tolerating well, denies nausea. PRN pain meds given per request, will give bedside shift report to nightshift nurse who will resume care.
--- NOTE | 2020-01-25 18:27 | NUR ---
LISA spoke to Darrius [phone]. stated that he is unsure of where patient will go after her DC. Spouse stated that she will have to make that decision. He provides he will be unable to assist with her care, due to the extent of her health. Spouse states that their daughter assist with some care and [facility] home health assists with home health that is needed. He states that patients PCP is Dr. Villagran. Spouse requested again for LISA to assist in finding out what patient would like to do upon DC. LISA will continue to follow.
[2020-01-25 20:11] VITALS: BP 135/73; PULSE 97; TEMP 97.7
--- NOTE | 2020-01-25 20:45 | NUR ---
Pt assessment completed and documented. Pt resting in bed at this time attempting to sleep. Pt reporting 9/10 pain to her neck that radiates to her head. PRN norco given per pt request per orders. PICC to RUE CDI without complications. Frias to dependent drainage with clear, yellow urine. Tube feeding infusing per orders to PEG tube. Pt denies any other needs/concerns at this time. Call light within reach. Bed alarm on. Will continue to monitor.
[2020-01-26] VITALS: BP 129/79; PULSE 110; TEMP 98.2
[2020-01-26 04:00] VITALS: BP 130/75; PULSE 105; TEMP 98.2
--- NOTE | 2020-01-26 05:41 | NUR ---
PRN norco given overnight per orders per pt request for neck/head pain. PRN valium given x1 for dizziness. Pt states she has rested well overnight. Currently resting in bed. PICC to LUE CDI. Frias to dependent drainage with clear, yellow urine. Tube feeding infusing per orders. Call light within reach. Bed alarm on
[2020-01-26 06:48] LABS: BASO % 0.1 % (0.0-2.0); EOS % 0.4 % (0-4.0); GRAN # 5.5 (1.4-6.5); GRAN % 70.8 % (42.2-75.2); HEMOGLOBIN 10.3 g/dl (12.5-16.0); LYMPH # 1.6 (1.2-3.4); MEAN CELL VOLUME 92 fl (80.0-100.0); MEAN CORPUSCULAR HEMOGLOBIN 31 pg (27.0-31.0); MEAN CORPUSCULAR HGB CONC 33 g/dl (33.0-37.0); MEAN PLATELET VOLUME 9.8 fl (7.4-10.4); MONO # 0.6 (0.1-0.6); MONO % 7.3 % (1.7-9.3); PLATELET COUNT 298 K/mm3 (130-400); RED BLOOD COUNT 3.37 M/mm3 (4.10-5.30)
[2020-01-26 06:56] LABS: CALCIUM 8.7 mg/dL (8.4-10.2); CREATININE, serum 0.4 (0.52-1.25); POTASSIUM 3.1 mmol/L (3.4-5.0)
[2020-01-26 07:04] LABS: PRE ALBUMIN 17.3 mg/dL (17.6-36.0)
--- NOTE | 2020-01-26 07:04 | NUR ---
Report given to SHELL Siddiqui
[2020-01-26 07:18] VITALS: BP 113/61; PULSE 114; TEMP 98.5
--- NOTE | 2020-01-26 10:38 | NUR ---
Assessment complete. Patient laying in bed, easily awoke to voice. Spoke with me minimally. Pain medication was requested, this was provided. Tube feeding was pauswed during medication administration, total of 100 ml used to flush between, before and after medications. Patient states she is comfotable at this time as far as her position. Tube feeding continues at 60 ml/hr as ordered. Potassium will be replaced per protocol. Will continue to monitor. Call light is in reach.
[2020-01-26 11:21] VITALS: BP 122/71; PULSE 110; TEMP 98
--- NOTE | 2020-01-26 13:30 | NUR ---
I spoke with pt several times today and also with her , Darrius. Kelly feels like she needs more meclizine and she will be less dizzy and can move on. She is tolerating her tube feeding well at this point but gets dizzy whenever she sits up or even moves. Kelly has managed her family finances and is still currently doing that. Her has known her the last 8 years and reports he knows very little about all the finances but she does it all. She is currently on short term diability which will run out in April. Patient assisance staff has met with her and talked with Darrius by phone to start the application for medicaid and will talk with her about social security diasability. Pt lives with her and daughter but the daughter provides very little care to her mother and basically lives in the basement. Daughter's name is Sylvie. She also has a son named Emir who lives in [place] but "has his hands full dealing with his own issues". She is also responsible for "Emir Field" who Darrius reports will go to [facility] if Kelly cannot help with his care. Pt does not have any durable power of state's attorney paperwork completed for herself. She told me she was going to fight this. I strongly encouraged her to think about who she would want to make decisions for her, if she was unable to make her own decisions. She shrugged her shoulder and said she didn't know who that would be. I encouraged her to think about that "just in case she would find herself in that position" and she did agree it would be important. She is struggling with the idea that she is not a caregiver now as much as someone who needs care. I did ask if there was anyone we would need to contact about Sylvie and Emir Field and she said no. She is very clear she is going to fight this cancer everway that she can and wants everything done.
--- NOTE | 2020-01-26 15:28 | NUR ---
A palliative care consult was ordered. LISA staffed with Palliative Care Nurse, Kasey. The patient would still like to continue treatment and is not ready for hospice. LISA followed up with Michelle, IPR Director, on referral. Michelle has submitted the patient's information to insurance and is waiting to hear back from them. LISA met with the patient to follow up. The patient confirms that she is wanting to continue treatment and fight. She states she is not ready to stop fighting. LISA inquired about a DPOA-HC. The patient states that she does not have one. She is not interested in completing one at this time, but states she will think about it. LISA provided her with a DPOA-HC form. LISA contacted and updated the patient's , Darrius. Darrius is agreeable to the patient going to [facility], if insurance approves. Financial Counselor, Dacia, completed a Medicaid application with the patient. Awaiting insurance.
[2020-01-26] MEDS ORDERED: LOVENOX 4040 MG/0.4 SQ (15:52)
[2020-01-26] MEDS ORDERED: KLOR-CON20 MEQ PO (15:54)
--- NOTE | 2020-01-26 16:27 | NUR ---
Michelle, IPR Director, reports that she received approval from the patient's insurance and that she would be able to accept the patient. LISA followed up with the patient and updated her on acceptance to [facility]. The patient is agreeable to going to [facility]. LISA contacted and updated the patient's , Darrius. LISA contacted and updated Antionette at [facility]. The patient is to discharge today, 01/25, to [facility]. No additional needs at this time.
[2020-01-26 16:31] VITALS: BP 122/71; PULSE 110; TEMP 98
--- NOTE | 2020-01-26 17:40 | NUR ---
PATIENT LEFT THE FLOOR AT THIS TIME. SHE WAS AWARE OF HER POC. ALL BELONGINGS WERE TRANSFERRED WITH HER. REPORT WAS CALL TO [facility]. NO OTHER QUESTIONS OR CONCRENS. TUBE FEEDING CONTINUED THROUGH TRANSFER.
== END 2020-01-26 18:02 | DRG 91 ==
LOC: COL.ER 14:09 → ICU 18:42 → MEDICAL 18:42
PROVIDERS: Emergency Medicine; Internal Medicine; Physician Assistant; ADMIT Student in an Organized Health Care Education/Training Program
DX: G72.81 Critical illness myopathy (principal); E43 Unspecified severe protein-calorie malnutrition; R65.10 Systemic inflammatory response syndrome (SIRS) of non-infectious origin without acute organ dysfunction; E87.2 Acidosis; C71.9 Malignant neoplasm of brain, unspecified; E87.3 Alkalosis; R62.7 Adult failure to thrive; D50.9 Iron deficiency anemia, unspecified; R13.10 Dysphagia, unspecified; E87.6 Hypokalemia; G47.00 Insomnia, unspecified; J44.9 Chronic obstructive pulmonary disease, unspecified; E27.8 Other specified disorders of adrenal gland; Z20.828 Contact with and (suspected) exposure to other viral communicable diseases; Z90.89 Acquired absence of other organs; Z90.49 Acquired absence of other specified parts of digestive tract; Z87.891 Personal history of nicotine dependence; Z68.32 Body mass index [BMI] 32.0-32.9, adult
CPT/HCPCS: 99222-AI; 99232-AI; 99233-AI; 99239; J1170; J1650; J3360; J3475; J3480; J7030; J7510

== ENCOUNTER 2020-01-26 16:36 | Inpatient (IN) | payer BC, OTHER ==
[~2020-01-26] VITALS: Ht 170.2 cm; Wt 75.6 kg
[~2020-01-26 16:36] MED LIST changes: +BACTRIM DS 8001 TAB PO; +CENA K20 MEQ/15 PO; +FENTANYL 12MCG TD; +KLOR-CON20 MEQ PO; +LOVENOX 4040 MG/0.4 SQ; +PRELONE15 MG/5 ML PO; +SALONPAS1 EACH TP
[2020-01-26 18:05] VITALS: BP 136/80; PULSE 99; TEMP 98
--- NOTE | 2020-01-26 19:44 | NUR ---
PT WAS TRANSFERRED BY MEDICAL NURSE AND AIDE VIA BED TO ROOM 337 AT 1700. PT REPORTS PAIN IN BACK OF NECK AND REQUESTED PRN MECLIZINE FOR DIZZINESS.
[2020-01-27 04:39] VITALS: BP 113/77; PULSE 117; TEMP 99.3
--- NOTE | 2020-01-27 07:22 | NUR ---
PT IN BED THIS SHIFT. LAYS ON RIGHT SIDE MOST OF THE TIME. JEVITY 1.5 INFUSING AT 60ML/HR WITH FLUSH AT 60ML EVERY 4 HOURS THRU PEG TUBE.
--- NOTE | 2020-01-27 07:34 | NUR ---
TOTAL JEVITY TAKEN IN THE PAST 24 HOURS WAS 1444ML AND 275ML WATER. REQUESTED AND GIVEN MECLAZINE X1 AND NORCO LIQUID X3 THIS SHIFT. GARRETT CATH EMPTIED WITH 475ML. TELE D/C EARLY THIS AM PER ORDER. CALL LIGHT IN REACH. SUCTION AT BEDSIDE FOR PT TO USE.
[2020-01-27 10:02] LABS: ALBUMIN 3.6 gm/dL (3.5-5.0); BILIRUBIN,TOTAL 0.7 mg/dL (0.0-1.0); CALCIUM 9.1 mg/dL (8.4-10.2); CREATININE, serum 0.45 (0.52-1.25); MAGNESIUM 1.8 mg/dL (1.6-2.3); PHOSPHOROUS 2.6 mg/dL (2.5-4.5); POTASSIUM 4.2 mmol/L (3.4-5.0); TOTAL PROTEIN 6.9 gm/dL (6.4-8.2)
[2020-01-27 10:09] LABS: PRE ALBUMIN 18.9 mg/dL (17.6-36.0)
--- NOTE | 2020-01-27 15:03 | NUR ---
Airbrush Artist met with patient to complete intake as patient is new to [facility]. Patient lives in [place] with her , Darrius (ph#[phone]), her foster son Emir and her biological daughter, Sylvie. Patient was recently at [facility], was discharged on 01/22/20 and presented to [facility] ED on 01/22 as she was not able to manage at home and was brought in EMS covered in feces. Patient sees Dr. Villagran for primary care and obtains medications from [facility]. Patient has a suction machine, walker, and cane at home. Patient confirms things were not going well at home. SW asked patient about her son, Emir and she advised patient has Case Management at [facility]. Patient does not have Advance Directives. LISA collaborated with Michelle, [facility] Director who advised Dr. Andersen and Dr. Gomez with Oncology would like a referral sent to [facility] as they can accommodate Chemo/Radiation. LISA contacted Princess at [facility] in [place] and faxed referral. [facility] states things are "day by day" for new referrals. Princess states they will need specifics on what type of chemo and radiation patient will need. LISA will follow up with Dr. Gomez's office and provide information to [facility].
[2020-01-27 15:29] VITALS: BP 119/79; PULSE 115; TEMP 97.9
--- NOTE | 2020-01-27 16:37 | NUR ---
Construction Trades Contractor contacted Dara with Dr. Gomez's office regarding the patient's chemo treatment. Dara reports that the patient is on Cisplatin and has received one treatment. They will resume treatment once the patient finished her rehab. LISA contacted Maribel with Dr. Andersen's office. The patient is scheduled for 35 treatments through their office. The patient has done two out of the 35 treatments so far. Her schedule there is Sunday-Sunday at 1pm and it takes around 30 minutes. She can continue with Dr. Andersen's office if [facility] is willing to bring her to them. If the patient goes to [facility] and they are not willing to transport to [place]; the patient will then have to go to [facility] to do the work up for radiation treatments. The work up could take 2-5 days. They will have to make a new radiation treatment plan for the patient. The current plan cannot be transferred to [facility]. LISA attempted to contact Princess from [facility] to provide updates, left message.
--- NOTE | 2020-01-27 18:05 | NUR ---
Patient resting in bed, rouses easily, is alert and oriented while awake. Patient has had some complaints of pain and dizziness today, administered PRN medication per order. Tube feeding continues per order, patient is tolerating well. Patient has used call light to communicate needs and has not exhibited impulsive behavior. Two soft formed bowel movements today, patient was continent. Frias catheter in place per order. Denies needs at this time, call light within reach, bed alarm on.
--- NOTE | 2020-01-27 21:32 | NUR ---
Resting in bed. Assessment complete. Lungs clear. Heart sounds normal. Bowels active. Pulses present throughout. No edema noted. PICC to left upper flushed without complications. Reports 6/10 neck pain. Provided with PRN norco at this time. Patient given PRN norco for pain. PEG tube feeding in progress. Denies other needs at this time. Call light in reach.
--- NOTE | 2020-01-27 22:21 | NUR ---
Resting in bed asleep. Call light in reach.
--- NOTE | 2020-01-28 01:43 | NUR ---
Reported 9/10 neck and back pain with dizziness. Provided with PRN norco and meclizine. Denies other needs at this time. Call light in reach.
--- NOTE | 2020-01-28 02:08 | NUR ---
Resting in bed asleep. Call light in reach.
--- NOTE | 2020-01-28 04:21 | NUR ---
Resting in bed asleep. Call light in reach.
[2020-01-28 04:55] VITALS: BP 92/48; PULSE 105; TEMP 99.3
--- NOTE | 2020-01-28 06:18 | NUR ---
Patient required PRN norco and meclizine for dizziness and pain control throughout night. Tube feeding stopped at 0550. Intake and output recorded. Otherwise uneventful night. Resting in bed this AM. Call light in reach.
--- NOTE | 2020-01-28 15:20 | NUR ---
Frias catheter removed per orders of Dr. Boles. Removed 9 ml NS from bulb and pulled catheter with 900 ml in bag. Patient tolerated procedure well. Currently resting in bed, call light in reach and bed alarm is set.
--- NOTE | 2020-01-28 15:48 | NUR ---
Modern Greek Studies Professor collaborated with Princess at [facility] who advised they would have to decline referral due to costs of chemo and radiation. SW met with patient to provide copy of team conference notes and discuss scheduling a family meeting. LISA then contacted patient's , Darrius and scheduled family meeting for 01/30/20 @ 1300. LISA will continue to follow.
[2020-01-28 17:34] VITALS: BP 134/75; PULSE 106; TEMP 98.1
--- NOTE | 2020-01-28 20:30 | NUR ---
PT AWAKE NOW. C/O NECK PAIN AND SEVERE SINUS CONGESTION W/ DRIED MUCOUS IN THROAT. NOTED RT SIDE OF TONGUE WITH WHITE COATING. PT RELATED NOT THRUSH- SORE AND DRY. PROVIDED BIOTINE AND MOUTH CARE SUPPLIES. JEVITY AT 60CC/HR PER PUMP. ALL MEDS ARE EITHER CRUSHED OR LIQUID PLACED IN PEG TUBE. SEE MAR FOR PAIN MEDS GIVEN. PT SPEECH VERY DIFFICULT TO UNDERSTAND. PT PLATINUM ALSO. PT DENIES TO VOID AT THIS TIME. CALL LIGHT IN REACH. BED ALARM SET.
[2020-01-29 06:14] VITALS: BP 119/77; PULSE 102; TEMP 98.7
[2020-01-29 07:19] LABS: BASO % 0.1 % (0.0-2.0); CALCIUM 8.7 mg/dL (8.4-10.2); CREATININE, serum 0.48 (0.52-1.25); EOS % 0.5 % (0-4.0); GRAN # 6.2 (1.4-6.5); GRAN % 73.4 % (42.2-75.2); LYMPH # 1.5 (1.2-3.4); LYMPH % 18.1 % (20.0-51.0); MAGNESIUM 1.7 mg/dL (1.6-2.3); MEAN CELL VOLUME 91 fl (80.0-100.0); MEAN CORPUSCULAR HGB CONC 33 g/dl (33.0-37.0); MEAN PLATELET VOLUME 9.7 fl (7.4-10.4); MONO # 0.6 (0.1-0.6); MONO % 7.5 % (1.7-9.3); PLATELET COUNT 284 K/mm3 (130-400); POTASSIUM 3.7 mmol/L (3.4-5.0); RED BLOOD COUNT 3.32 M/mm3 (4.10-5.30); REDCELL DISTRIBUTION WIDTH-CV 13.9 % (11.5-14.5)
[2020-01-29 07:21] LABS: HEMATOCRIT 30.1 % (37.0-47.0); HEMOGLOBIN 9.9 g/dl (12.5-16.0); MEAN CORPUSCULAR HEMOGLOBIN 30 pg (27.0-31.0)
--- NOTE | 2020-01-29 13:04 | NUR ---
Patient working with therapy at this time. Patient denies any questions. Given prn pain meds with good effect.
--- NOTE | 2020-01-29 13:05 | NUR ---
Admission QIM scores were reviewed by the team. Code of 5 chosen for oral hygiene was determined by team discussion to be the most usual performance before interventions for this patient during the assessment period. Code of 1 chosen for walk 50 feet w/ 2 turns was determined by team discussion to be the most usual performance for this patient during the assessment period.--Michelle Puckett, PD
--- NOTE | 2020-01-29 14:30 | NUR ---
Patient admitted to [facility] with left upper arm PICC. dressing dated 01/21/2020. Sterile dresssing change done with insertion site cleansed with chloraprep x 1, chlorhexidine impregnated disk applied, skin prep, stat lock, and tegaderm applied. no signs or symptoms of IV complications noted. no concerns voiced. RN will change caps. wrapped with an kevan to protect catheter.
[2020-01-29 17:16] VITALS: BP 114/74; PULSE 107; TEMP 98.7
--- NOTE | 2020-01-29 20:30 | NUR ---
PT RESTING IN BED. VERY ILL APPEARING PATIENT. USUSALLY RESTS ON RT SIDE. JAMUL. MOUTH BREATHER. GETTING ROBITUSSIN ON SCHEDULE FOR NASOPHARYNGEAL CONGESTION. USES YAUNKERS FOR MOUTH SUCTION PRN. RT SIDE OF TONGUE WHITE COATING. .SEE MAR FOR PAIN MEDICATIONS GIVEN. SEE DIELECTRIC EMBOSSING MACHINE OPERATOR DAILY ASSESSMENT FOR PEG TUBE FEEDING RECOMMENDATIONS TO FOLLOW. TOLERATING TUBE FEEDING WELL. PEG TUBE SITE HAS MINIMAL LIGHTEXUDATE IN VERY SMALL AMT. CALL LIGHT IN REACH. BD ALARM SET.
[2020-01-30 05:22] VITALS: BP 113/58; PULSE 94; TEMP 98
--- NOTE | 2020-01-30 13:50 | NUR ---
PT SLEEPING IN BED AT BEDSIDE REPORT. PT REPORTED 8/10 PAIN THIS AM AND RECEIVED PRN NORCO WITH ANTIVERT MEDICATION. PT TOLERATED LUNCH PEG TUBE FEEDING WELL GIVEN PER GRAVITY OVER APPROX 5 MINUTES. LIDOCAINE PATCH TO POSTERIOR NECK.
--- NOTE | 2020-01-30 16:06 | NUR ---
News Production Supervisor participated in patient/family conference which included patient's , Darrius and palliative RN, Kasey. Michelle, IPR Director opened the meeting by explaining it's purpose then OT/PT provided updates on patient's progress and answered questions. Patient would like to return home upon discharge as she wants to start radiation and chemotherapy. Darrius is in agreement with discharge home as long as patient is strong enough as patient will start radiation upon discharge. Darrius states he still feels scared about patient returning home because of what happened when patient discharged from [facility]. Darrius states he feels patient was discharged too soon from [facility] but comments that patient looks better than she has in a long time. Patient and Darrius want to continue with [facility]. Michelle reports that nursing staff have been working with patient on administering her own feedings as tolerated. Following family meeting, LISA contacted Antionette at [facility] and faxed referral. Antionette advised they will pharmacy picking technician patient for services once she is discharged. LISA inquired about private duty services for patient at a reduced cost as prior to admit, patient was offered a stay at [facility] at a reduced cost. Antionette will check into this and follow up.
[2020-01-30 18:30] VITALS: BP 116/78; PULSE 108; TEMP 973.5
--- NOTE | 2020-01-30 19:28 | NUR ---
PT TOLERATING BOLUS FEEDINGS WELL PT CONTINUES TO REPORT 8/10 PAIN. AND DIZZINESS. PT VOIDING WELL AFTER GARRETT DISCHARGED
--- NOTE | 2020-01-30 19:30 | NUR ---
RECEIVED CHANGE OF SHIFT REPORT FROM DAY SHIFT NURSE. PATIENT SLEEPING, BED ALARM ON. IVF INFUSING WITH NO PROBLEMS.
[2020-01-31 05:11] VITALS: BP 113/62; PULSE 93; TEMP 98.2
--- NOTE | 2020-01-31 06:55 | NUR ---
PT SLEEPING IN BED AND RECEIVING TUBE FEEDING AT BEDSIDE SHIFT REPORT. JUST RECEIVED PRN PAIN MEDICINE.
[2020-01-31 07:00] LABS: CALCIUM 8.7 mg/dL (8.4-10.2); CREATININE, serum 0.43 (0.52-1.25); POTASSIUM 3.5 mmol/L (3.4-5.0)
--- NOTE | 2020-01-31 07:10 | NUR ---
CHANGE OF SHIFT REPORT GIVEN TO DAY SHIFT NURSEKEGEAN. PATIENT SLEEPING DURING REPORT. IVF CONTINUES INFUSING WITH NO PROBLEMS.
[2020-01-31 16:56] VITALS: BP 141/82; PULSE 95; TEMP 98.1
--- NOTE | 2020-01-31 17:37 | NUR ---
PT NORCO ORAL SOLUTION CHANGED TO TABLET TO CRUSH. PT RECEIVED 3 PRN NROCO DOSES. IS TRANSFERRING WELL BUT VERY TIRED. CONTINUES TO TOLERATE PEG FEEDINGS WELL.
--- NOTE | 2020-01-31 19:02 | NUR ---
RECEIVED CHANGE OF SHIFT REPORT FROM DAY SHIFT NURSE. PATIENT RESTING IN BED WITH EYES CLOSED.
--- NOTE | 2020-02-01 02:28 | NUR ---
PATIENT SLEEPING, DOES NOT WAKEN WHEN ROOM ENTERED BY STAFF. SEE eMAR FOR PRN MEDS GIVEN. BED ALARM ON.
[2020-02-01 06:02] VITALS: BP 128/62; PULSE 82; TEMP 98.5
--- NOTE | 2020-02-01 07:23 | NUR ---
CHANGE OF SHIFT REPORT GIVEN TO DAY SHIFT NURSEANSELMO. BED ALARM ON.
--- NOTE | 2020-02-01 11:18 | NUR ---
Patient resting in bed, call light in reach and bed alarm set. Patient coughs up a lot of phlegm and uses the yonker independently. Patient had some clogging to the yonker this morning and this nurse replaced with a new one. Patient tolerated peg tube feeding and administration of meds this AM. Patient given prn [place] to help with pain. Patient denied any questions this morning. Area around peg tube site was cleaned with normal saline, patted dry and applied new drain sponge. Drainage with light yellow in color. Area around peg tube sight is slightly red. Will continue to monitor.
--- NOTE | 2020-02-01 14:29 | NUR ---
Patient resting in bed, call light in reach and bed alarm set. Patient reporting pain 7/10 and given prn pain meds as well as 2:00 meds. Patient tolerated well. Patient getting peg tube feedings and tolerated lunch meal well. Will continue to monitor.
--- NOTE | 2020-02-01 14:57 | NUR ---
Patient resting in bed at this time.
[2020-02-01 17:02] VITALS: BP 126/75; PULSE 88; TEMP 98.6
[2020-02-01 18:27] VITALS: BP 140/105; PULSE 120
--- NOTE | 2020-02-01 18:39 | NUR ---
Patient was being walked to the bathroom by this nurse, she was wearing a gait belt and using her walker, when patient almost reached the bathroom door she started to reach to the gloves on the wall and then became very anxious and confused wanting to sit down. This nurse called out for someone to assist her and SHELL Nugent assisted this nurse with getting the Bed Side Commode for patient to sit on. Patient then urinated and her vitals were taken with pulse being very elevated at 120 to 131 BPM. KATY Damon was called see order for EKG. This was completed and Marisol was updated on the results of the EKG. Patient will continue to be monitored at this time. Patient resting in bed, call light in reach and bed alarm is set. Reported off to night nurse.
--- NOTE | 2020-02-01 19:37 | NUR ---
Took patient down for a STAT CT Scan and she has now returned. She is lying in bed, call light in reach and bed alarm set.
--- NOTE | 2020-02-01 19:46 | NUR ---
RECEIVED CHANGE OF SHIFT REPORT FROM DAY SHIFT NURSE. PATIENT BACK IN ROOM FROM W/C TRANSFER DOWN TO RADIOLOGY FOR DO CT SCAN. PATIENT RESTING WITH NO C/O CURRENTLY. BED ALARM ON.
[2020-02-01 21:49] VITALS: BP 130/69; PULSE 99
--- NOTE | 2020-02-01 22:17 | NUR ---
PATIENT REQUESTED AND GIVEN PAIN MEDS, SEE eMAR FOR MEDS GIVEN. NO OTHER NEEDS REPORTED.
--- NOTE | 2020-02-02 01:40 | NUR ---
PATIENT SLEEPING, BREATHING NONLABORED AND EVEN. DOES NOT WAKEN WHEN ROOM IS ENTERED BY STAFF. BED ALARM ON.
[2020-02-02 04:07] VITALS: BP 128/80; PULSE 104; TEMP 97.7
[2020-02-02 05:14] LABS: HEMOGLOBIN 10.2 g/dl (12.5-16.0); MEAN CELL VOLUME 90 fl (80.0-100.0); MEAN CORPUSCULAR HEMOGLOBIN 30 pg (27.0-31.0); MEAN CORPUSCULAR HGB CONC 33 g/dl (33.0-37.0); MEAN PLATELET VOLUME 9.8 fl (7.4-10.4); PLATELET COUNT 247 K/mm3 (130-400); RED BLOOD COUNT 3.43 M/mm3 (4.10-5.30); REDCELL DISTRIBUTION WIDTH-CV 14.3 % (11.5-14.5)
[2020-02-02 05:19] LABS: HEMATOCRIT 30.8 % (37.0-47.0)
[2020-02-02 05:23] LABS: ALBUMIN 3.4 gm/dL (3.5-5.0); BILIRUBIN,TOTAL 0.6 mg/dL (0.0-1.0); CALCIUM 9.1 mg/dL (8.4-10.2); CREATININE, serum 0.47 (0.52-1.25); MAGNESIUM 1.9 mg/dL (1.6-2.3); PHOSPHOROUS 4.4 mg/dL (2.5-4.5); TOTAL PROTEIN 6.6 gm/dL (6.4-8.2)
[2020-02-02 05:30] LABS: PRE ALBUMIN 20.5 mg/dL (17.6-36.0)
--- NOTE | 2020-02-02 06:32 | NUR ---
DR POLLACK CALLED RE:[facility] W/NO ORDERS GIVEN.
--- NOTE | 2020-02-02 07:06 | NUR ---
CHANGE OF SHIFT REPORT GIVEN TO DAY SHIFT NURSEKEEGAN.
--- NOTE | 2020-02-02 08:49 | NUR ---
PT SLEEPING IN BED AT BEDSIDE SHIFT REPORT. WAS GIVEN PRN NORCO WITH LAST SHIFT'S AM FEED AND MORNING MEDICATION ADMINISTRATION. PT REPORTS 4/10 PAIN THIS AM. PT REPORTS FEELING MORE DIZZY STILL BUT NO OTHER COMPLICATIONS NOTED THIS AM.
--- NOTE | 2020-02-02 14:32 | NUR ---
Data Conversion Analyst contacted Hali from [facility] to follow up regarding private duty services for the patient at a reduced cost, left message. LISA met with the patient and the patient's , Darrius to follow up after the weekend. Darrius inquired about cancer support groups. LISA contacted Dr. Andersen's office and the branner machine tender reports that she did not know of any and if there were some that likely not be in session because of restrictions. LISA contacted [employer] in [place] to inquire about support group resources, left message for the director.
[2020-02-02 16:37] VITALS: BP 112/72; PULSE 92; TEMP 99
--- NOTE | 2020-02-02 17:38 | NUR ---
PT REPORTS DIZZINESS WAS WORSE THIS AM. NO EPISODES OF ALTERED MENTAL STATUS LIKE REPORTED LAST NIGHT. PT TOLERATED THERAPY AND TUBE FEEDINGS WELL. VERY TIRED AND WEAK.
[2020-02-03 07:46] VITALS: BP 116/59; PULSE 100; TEMP 98.9
--- NOTE | 2020-02-03 08:10 | NUR ---
PT UP TO BR X1 THIS SHIFT. BACK TO BED AND REST ON RIGHT SIDE ALL NIGHT. TUBE FEEDINGS GIVEN AND TOLERATES WELL WITH RESIDUAL OF ONLY 8ML ON THE FIRST FEEDING AND 1ML ON THE SECOND FEEDING. MEDICATED WITH HYDROCODONE 5/325 1/2 TAB X 3 THIS SHIFT FOR PAIN.
--- NOTE | 2020-02-03 10:16 | NUR ---
Patient tolerated feeding well this morning. Meds were given with gatorade rather then water this morning due to sodium levels. Talked with dietary and she was okay with patient getting some free water today, but to mainly use gatorade. Patient just left for group therapy at this time. Denied any questions. Will continue to monitor.
--- NOTE | 2020-02-03 14:01 | NUR ---
Patient attended all therapies today. Currently she is working with OT. Will continue to monitor.
[2020-02-03 14:11] VITALS: BP 147/79; PULSE 129; TEMP 97.5
[2020-02-03 16:00] VITALS: BP 147/79; PULSE 129; TEMP 97.5
[2020-02-03 17:41] VITALS: BP 122/71; PULSE 121; TEMP 98
--- NOTE | 2020-02-03 20:00 | NUR ---
Report received, assumed care for avionic technician. Assessment complete. VS stable. A&Ox3. Denies pain/nausea/shortness of breath. Meds given in peg tube-flushed with 30mls of gatorade. PICC to left upper arm flushes without difficulty.Denies needs. Call light in reach. Will monitor.
[2020-02-04 04:32] VITALS: BP 133/76; PULSE 86; TEMP 99
--- NOTE | 2020-02-04 05:30 | NUR ---
Hydrocodone 0.[address] order via peg tube for pain to head/back-rated 8/10 on scale-described as constant ache. Will monitor.
--- NOTE | 2020-02-04 06:00 | NUR ---
Rested well this shift. Received three doses of hydrocodone for pain. Tolerated peg tube feeding well. Denied nausea. Accuchecks remained WNL. Call light in reach. Will monitor.
--- NOTE | 2020-02-04 09:00 | NUR ---
Patient was working with ST this morning and had an episode of dizziness requiring patient to lay down. ST decided to stop therapies at that time and resume in the afternoon. Patient was able to tolerate all afternoon therapies. Patient currently resting in bed, call light in reach and bed alarm is set. Patient denies any questions at this time.
--- NOTE | 2020-02-04 12:22 | NUR ---
Patient resting in bed, call light in reach, bed alarm is set. Patient reporting pain 7/10 and given prn Hydrocodone. Will continue to monitor. Patient continues to have dizziness and given prn meclizine.
--- NOTE | 2020-02-04 15:00 | NUR ---
PICC intact left upper arm with sterile dressing change done with insertion site cleansed with chloraprep x 1, chlorhexidine impregnated disk applied, skin prep, stat lock, and tegaderm applied. no signs or symptoms of IV complications noted. no concerns voiced. re-wrapped with an kevan to protect catheter.
--- NOTE | 2020-02-04 15:40 | NUR ---
Hali with [facility] contacted this [employer]. She reports that they can provide an aide for the patient at $23 an hour. SW attempted to meet with the patient to discuss the Team Conference Note, the patient was sleeping and her was not in the room. Will attempt at a later time.
[2020-02-04 18:08] VITALS: BP 102/62; PULSE 101; TEMP 97.4
--- NOTE | 2020-02-04 19:51 | NUR ---
RECEIVED CHANGE OF SHIFT REPORT FROM DAY SHIFT NURSE. BED ALARM ON.
--- NOTE | 2020-02-04 20:00 | NUR ---
PATIENT SLEEPING, AWAKENS WITH NAME CALLED, DENIES ANY NEEDS AT THIS TIME. TOLERATING PEG INTAKE. DENIES URGE TO VOID. INTERMITTENTLY HAS MOIST PRODUCTIVE COUGH THAT PATIENT STATES IS FROM HER CLOGGED SINUSES. DENIES CHEST PAIN/SHORTNESS OF BREATH. DENIES NAUSEA. DENIES NUMBNESS/TINGLING AT THIS TIME. BED ALARM ON.
[2020-02-05 05:44] VITALS: BP 113/66; PULSE 88; TEMP 98.1
--- NOTE | 2020-02-05 07:18 | NUR ---
CHANGE OF SHIFT REPORT GIVEN TO DAY SHIFT NURSESHALA. BED ALARM ON.
--- NOTE | 2020-02-05 08:25 | NUR ---
Lying in bed on right side. Alert and oriented x4. Patient is hard to understand. When asked if she is having pain patient denies. Peg tube to abd with gauze CDI, skin under gauze red and irritated. Skin care to peg tube site provided and new gauze applied. Meds administered through peg tube and flushed with small amount of water. PT in room to work with the patient. Denies additional needs at this time.
--- NOTE | 2020-02-05 12:05 | NUR ---
Patient assisted to BSC. Patient voids and has medium brown soft formed BM. Assist patient in pericare. Returns to bed. Patient lies on right side with HOB elevated 30 degrees. Peg tube feeding administered as prescribed as well as meds given in peg tube. Patient tolerates without difficulty. Denies additional needs at this time.
--- NOTE | 2020-02-05 13:05 | NUR ---
Patient spouse is in room. Spouse brings up concerns that he is not going to be able to take care of patient at home by himself, he says that it is too much to put on him, and he knows that she will end up right back here in the hospital. Spouse tearful at this time. Discussed concerns further with the spouse and he says that he has enough of his own health problems that he has to take care of, he has all house chores on him now, he has to cook and do all the shopping. Spouse says now they expect him to take care of all of the patient's needs as well and that he is not at all comfortable with the PEG tube feedings either. Spouse says that he was taught how to do it but he is not at all comfortable with doing it. Explained that we would let Mehreen know. Spoke with Mehreen and she will have Melita come talk to the spouse further. This nurse also speaks with Melita to update her on spouse's concerns. Melita will be in to speak with the spouse.
--- NOTE | 2020-02-05 13:29 | NUR ---
Went in room as patient due for Robitussin. Offered the spouse to administer in the PEG tube so this nurse could evaluate what he was doing and also educate him more. Patient spouse says that he just can't do it and walks out of room. Medication administered by this nurse and flush performed before and after as well. Melita then comes into room with the spouse. Spouse then says that he does know how to do the peg tube feedings and care he is jsut not comfortable with it. Melita sits down with the patient and her spouse at this time.
--- NOTE | 2020-02-05 14:19 | NUR ---
Patient requests pain medication for headache. Will administer Bentley as prescribed. Patient spouse has left for the day. Patient lying in bed with eyes open. Denies additional needs at this time.
--- NOTE | 2020-02-05 17:06 | NUR ---
Lying in bed on right side with eyes closed. Will open eyes when talked to and will answer questions but then goes back to sleep. Denied pain when asked. Peg feeding performed as prescribed. Patient denies additional needs at this time.
--- NOTE | 2020-02-05 17:58 | NUR ---
Lying in bed on right side with eyes closed. Opens eyes when name called out. Denies discomfort at this time. Medication administered via peg tube and peg tube flushed without difficulty. Asked patient if she needed to use BSC and patient declines. Denies further needs at this time.
[2020-02-05 18:00] VITALS: BP 121/74; PULSE 108; TEMP 98.5
--- NOTE | 2020-02-05 21:00 | NUR ---
PT CONTINUALLY STAYS ON RT SIDE. HOB ELEVATED AT ALL TIMES. YAUNKERS TO SUCTION. RT SIDE OF TOUGUE/MOUTH WHITE IN COLOR. ATTEMPTS TO LOOSEN SECRETIONS WITH A COUGH. RECEIVES ROBITUSSIN ON SCHEDULEPER PEG. REFUSES ANY MOUTH CARE. FRESHENED H20 FOR MOUTH SWABS. MOANS IN PAIN. SEE MAR FOR NORCO GIVEN PER PEG. PEG TUBE IN PLACE. FLUSHES WELL. PT REMAINS FULL CODE. CALL LIGHT IN REACH. BED ALARM SET.
[2020-02-06 05:55] VITALS: BP 137/66; PULSE 83; TEMP 97.3
--- NOTE | 2020-02-06 07:44 | NUR ---
TOLERATED JEVITY TF THIS AM. PEG TUBE SITE CLEANED AND ROC OINTMENT APPLIED. NOTED PURULENT DRAINAGE ON OLD DRESSING. PT ABLE TO COUGH UP SMALL AMT SPUTUM AND USE YAUNKERS TO SUCTION OUT.
--- NOTE | 2020-02-06 08:29 | NUR ---
PT RECEIVING PEG TUB FEEDING AT BEDSIDE SHIFT REPORT, PT IN BED.
[2020-02-06] MEDS ORDERED: TYLENOL 325MG325 MG PO (08:35)
[2020-02-06] MEDS ORDERED: ROBITUSSIN100 MG/5 M PO (08:36)
[2020-02-06] MEDS ORDERED: BLUE-EMU LIDOC1 EACH TP (08:37)
[2020-02-06] MEDS ORDERED: ANTIVERT 25MG25 MG PO (08:37)
[2020-02-06] MEDS ORDERED: DESITIN MAXIMUM S40% TP (08:37)
[2020-02-06] MEDS ORDERED: NORCO 325 MG-51 TAB PO (08:38)
[2020-02-06] MEDS ORDERED: FENTANYL 12MCG TD (08:38)
[2020-02-06] MEDS ORDERED: BIOTENE MOIST44.3 ML PO (08:38)
[2020-02-06] MEDS ORDERED: PROAIR HFA0.09 MG/AC IH (08:40)
--- NOTE | 2020-02-06 09:32 | NUR ---
The patient is to discharge home today, 02/05 with [facility] . PT/OT/ ST/Nursing. Discharge orders faxed. The patient's , Darrius did have some concerns about returning home with the patient. LISA discussed [facility] pricing for an aide, he declined. LISA discussed [facility] offer [facility] reduced brennan skilled stay, he declined. LISA collaborated this information with the team. There are no additional needs.
--- NOTE | 2020-02-06 11:09 | NUR ---
PT TO DISCHARGE WITH PICC IN PLACE FOR USE WITH CHEMO THERAPY. ORDER TO REMOVE PICC WAS PLACED BEFORE THIS WAS VERIFIED AND THIS NURSE IS UNABLE TO DC THE ORDER. ORDER FOR HOME CARE INSTRUCTIONS PRINTED FOR PT AND PHYSICIAN DISCHARGE ORDERS PRINTED.
--- NOTE | 2020-02-06 14:12 | NUR ---
PT HEALTH SUMMARY, DISCHARGE SUMMARY, AND HOME MEDS PRINTED AND REVIEWED WITH PT AND CARMEN. STRESSED IMPORTANCE OF FOLLOW UP APPOINTMENTS. REVIEWED MEDICATIONS, PROVIDED PRINTED PRESCRIPTION FOR ROXICODONE, FENTYNAL PATCH, AND LIDOCAINE PATCH. BELONGINGS GATHERED BY E COMMERCE ANALYST AND RN INCLUDING PURSE AND WATCH AND CELLPHONE. PT TRANSPORTED VIA BY [employer] AND [employer] FOR [facility]. PT AND RELATION DENIED QUESTIONS. PT DISCHARGED AT 1250.
--- NOTE | 2020-02-06 15:12 | NUR ---
Discharge QIM scores were reviewed by the team. Code of 6 chosen for upper body dressing was determined by team discussion to be the most usual performance for this patient during the assessment period. Code of 6 for sit to stand was determined by team discussion to be the most usual performance for this patient during the assessment period. Code of 4 for chair/bed to chair transfers was determined by team discussion to be the most usual performance for this patient during the assessment period. Code of 6 chosen for walk 10 feet was determined by team discussion to be the most usual performance for this patient during the assessment period.--Michelle Puckett, PD
== END 2020-02-06 12:50 | disposition home health service (06) | DRG 947 ==
PROVIDERS: Physician Assistant; ADMIT Internal Medicine
DX: R53.81 Other malaise (principal); E43 Unspecified severe protein-calorie malnutrition; R65.10 Systemic inflammatory response syndrome (SIRS) of non-infectious origin without acute organ dysfunction; E87.2 Acidosis; E87.3 Alkalosis; D49.6 Neoplasm of unspecified behavior of brain; D35.02 Benign neoplasm of left adrenal gland; G72.9 Myopathy, unspecified; J44.9 Chronic obstructive pulmonary disease, unspecified; D50.9 Iron deficiency anemia, unspecified; E87.6 Hypokalemia; R00.0 Tachycardia, unspecified; R49.0 Dysphonia; R13.10 Dysphagia, unspecified; R62.7 Adult failure to thrive; G47.00 Insomnia, unspecified; Z79.891 Long term (current) use of opiate analgesic; Z79.52 Long term (current) use of systemic steroids; Z93.1 Gastrostomy status; Z88.1 Allergy status to other antibiotic agents; Z88.5 Allergy status to narcotic agent; Z91.81 History of falling
CPT/HCPCS: 99223-AI; 99231-AI; 99232-AI; 99239; J1650; J1815; J2997; J7030; J7510